=== PATIENT | female | born 1985 | race African-American/Black ===

== ENCOUNTER 2019-08-22 07:46 | Emergency (ER) | payer SELFPAY ==
[2019-08-22 09:24] LABS: APPEARANCE,URINE CLOUDY; BILIRUBIN,URINE NEGATIVE (NEGATIVE); COLOR,URINE YELLOW; GLUCOSE, URINE NEGATIVE (NEGATIVE); KETONES,URINE NEGATIVE (NEGATIVE); LEUKOCYTE ESTERASE,URINE NEGATIVE (NEGATIVE); NITRITE,URINE NEGATIVE (NEGATIVE); PROTEIN,URINE NEGATIVE (NEGATIVE); URINE SPECIFIC GRAVITY 1.025; UROBILINOGEN,URINE NEGATIVE mg/dL (<2.0)
[2019-08-22 10:14] LABS: CHLAM PCR NOT DETECTED (NOT DETECT)
--- NOTE | 2019-08-22 10:51 | ER Document Report ---
Entered by JEFF RODRIGUEZ SCRIBE 08/22/19 0822 Acting as scribe for:TOBI BANSAL MD ED General - General Chief Complaint: Vaginal Itching Stated Complaint: VAGINAL PAIN Time Seen by Provider: 08/22/19 08:03 Information source: Patient Notes: This 33-year-old female presents to the emergency department complaining of vaginal discharge that is thick and white for the past week. Patient reports vaginal itch, frequency, difficulty swallowing, dry mouth, vaginal odor, sensation in toes and pain in palms. Patient denies rash and burning. Patient explains that she may have suspicion of STD and has not been on any antibiotics recently. Patient states that she believes "it's yeast infection". - Related Data Allergies/Adverse Reactions: No Known Allergies Allergy (Verified 09/12/13 16:24) Past Medical History - General Information source: Patient - Social History Smoking Status: Never Smoker Cigarette use (# per day): No Chew tobacco use (# tins/day): No Frequency of alcohol use: None Drug Abuse: Marijuana Lives with: Family Family History: Hypertension Patient has homicidal ideation: No GI Medical History: Reports: Hx Gastroesophageal Reflux Disease Psychiatric Medical History: Reports: Hx Anxiety, Hx Depression Past Surgical History: Reports: Hx Section, Hx Gynecologic Surgery - ENDOMETRIAL ABLATION, Hx Tubal Ligation - Immunizations Immunizations up to date: No Hx Diphtheria, Pertussis, Tetanus Vaccination: Yes Review of Systems - Review of Systems Constitutional: No symptoms reported EENT: See HPI, Difficulty swallowing Cardiovascular: No symptoms reported Respiratory: No symptoms reported Gastrointestinal: No symptoms reported Genitourinary: See HPI, Frequency. denies: Burning, Dysuria Female Genitourinary: See HPI, Vaginal discharge - Thick, white, Vaginal odor. denies: Musculoskeletal: See HPI, Other - Toe pain Skin: No symptoms reported Hematologic/Lymphatic: No symptoms reported Neurological/Psychological: No symptoms reported -: Yes All other systems reviewed and negative Physical Exam - Vital signs Vitals: Temp Pulse Resp BP Pulse Ox 97.8 F 68 16 121/83 100 08/22/19 07:49 08/22/19 07:49 08/22/19 07:49 08/22/19 07:49 08/22/19 07:49 - Notes Notes: Physical Exam: General: Alert, appears well. HEENT: Normocephalic. Atraumatic. PERRL. Extraocular movements intact. Oropharynx clear. Neck: Supple. Non-tender. Respiratory: No respiratory distress. Clear and equal breath sounds bilaterally. Cardiovascular: Regular rate and rhythm. Abdominal: Normal Inspection. Non-tender. No distension. Normal Bowel Sounds. Back: No gross abnormalities. Extremities: Moves all four extremities. Upper extremities: Normal inspection. Normal ROM. Lower extremities: Normal inspection. No edema. Normal ROM. Neurological: Normal cognition. AAOx4. Normal speech. Psychological: Normal affect. Normal Mood. Skin: Warm. Dry. Normal color. Course - Re-evaluation Re-evalutation: 08/22/19 10:44 Patient resting comfortably not showing signs of distress - Vital Signs Vital signs: Temp Pulse Resp BP Pulse Ox 97.8 F 68 16 121/83 100 08/22/19 08:00 08/22/19 07:49 08/22/19 07:49 08/22/19 07:49 08/22/19 07:49 08/22/19 10:44 Vital signs stable - Laboratory Laboratory results interpreted by me: 08/22/19 08:55 POC Glucose 118 H Patient's fasting blood sugar 118 Urine GC chlamydia PCR negative Discharge - Discharge Clinical Impression: BV (bacterial vaginosis), Hyperglycemia Condition: Stable Disposition: HOME, SELF-CARE Additional Instructions: Hyperglycemia (High Blood Sugar) You have an abnormally high blood sugar. Not all high blood sugar requires long-term treatment. High blood sugar can be due to medications, , or the stress of illness. (These cases are "borderline diabetes.") If the doctor feels your high blood sugar might resolve with time, you may not require treatment now. You will be scheduled for further evaluation. It's very important that you follow through, to see if the blood sugar returns to normal levels. Uncontrolled high blood sugar leads to early heart disease, strokes, nerve damage, eye damage, and kidney damage. Call the physician if there is faintness, excess sleepiness, or very rapid breathing.Vaginosis, Bacterial Your exam shows you have bacterial vaginosis. This condition is due to an overgrowth of bacteria in the vagina. Symptoms may include vaginal itching or pain, a smelly discharge, and sometimes burning with urination. Normally this is not transmitted by sexual contact. Vaginosis can be treated with oral or topical antibiotics. Metronidazole (Flagyl) pills are usually effective. Topical vaginal creams include Cleocin and Metro-Gel. You should avoid sexual contact until your symptoms are all better. Call the doctor if you develop pelvic pain, fever, or problems with urination, or if you don't improve as expected. Vaginal Yeast Infection You have evidence of a yeast infection -- called "mukul." A vaginal yeast infection often causes itching and discharge. While not dangerous, it can be very unpleasant. A yeast infection often follows the use of powerful antibiotics. It is more likely to occur in diabetics. The treatment now is usually a single pill of Diflucan, but also an antifungal cream or suppository may be used for a few days. You do not need to avoid sexual intercourse. Recurrences are common. You can make a recurrence less likely by wearing cotton underwear and avoiding tight clothing. For mild recurrences, you can try [id number] creams or suppositories that are made specifically for yeast. If the symptoms do not resolve, you should follow up for re-examination. Sometimes treatment of the sexual partner is necessary if infections are recurrent. Vaginitis Your exam shows that you have vaginitis, a vaginal infection. The infection can be caused by a many different organisms, including trichomonas or Gardnerella. The usual symptoms are vaginal irritation and discharge. The treatment is usually antibiotics such as Flagyl. Laboratory tests can determine which germ is responsible. Use the medication as prescribed. Because this infection can be transmitted sexually, your sexual partner may need to be checked and treated also. If your physician has not discussed this with you, please check before resuming sexual relations. If a culture shows gonorrhea or chlamydia, the infection must be reported to the health department. Call the doctor if you develop pelvic pain, fever, or problems with urination, or if you don't improve as expected. Prescriptions: Fluconazole [Diflucan] 100 mg PO ASDIR 7 Days #2 tablet Metronidazole [Flagyl 500 mg Tablet] 500 mg PO BID #10 tablet I personally performed the services described in the documentation, reviewed and edited the documentation which was dictated to the scribe in my presence, and it accurately records my words and actions.
[2019-08-22 10:59] VITALS: BP 118/93
== END 2019-08-22 10:58 | disposition home or self-care (01) ==
LOC: ER 07:46
DX: N76.0 Acute vaginitis (principal); B96.89 Other specified bacterial agents as the cause of diseases classified elsewhere; R73.9 Hyperglycemia, unspecified; Z98.51 Tubal ligation status
CPT/HCPCS: 81001; 82962; 87491; 87591; 99283